=== PATIENT | female | born 1990 | race Caucasian/White ===

== ENCOUNTER 2018-07-17 08:39 | Emergency (ER) | payer BC ==
--- NOTE | 2018-07-17 08:41 | UC ---
Dental HPI - HPI Summary HPI Summary: know dental prob upper L molar, is scheduled for root canal i n 2 days. tooth pain has been progressive;y worse over pst few days. is usinh tyleno and ibuprofen for pain with fairly good relief. she feels like her tooth is "swollen ". no drainage - History of Current Complaint Stated Complaint: DENTAL PAIN Time Seen by Provider: 07/17/18 08:40 Hx Obtained From: Patient ?: No Onset/Duration: Gradual Onset Severity: Severe Aggravating Factor(s): Heat, Cold, Chewing Alleviating Factor(s): OTC Meds Related History: Previous Dental Care on Same Tooth - Allergies/Home Medications Allergies/Adverse Reactions: Allergies Allergy/AdvReac Type Severity Reaction Status Date / Time milk Allergy GI Upset Verified 07/17/18 08:50 Home Medications: Home Medications Etonogestrel [Nexplanon] 07/17/18 [History] Gabapentin CAP(*) [Neurontin 300 CAP(*)] 600 mg PO BEDTIME 07/17/18 [History Confirmed 07/17/18] Gabapentin CAP(*) [Neurontin 300 CAP(*)] 900 mg PO QAM 07/17/18 [History Confirmed 07/17/18] LORazepam TAB(*) [Ativan 0.5 MG TAB (*)] 0.5 mg PO TID PRN 07/17/18 [History Confirmed 07/17/18] Loratadine 10 mg PO ONCE PRN 07/17/18 [History Confirmed 07/17/18] buPROPion TAB* [Wellbutrin TAB*] 300 mg PO QAM 07/17/18 [History Confirmed 07/17] PMH/Surg Hx/FS Hx/Imm Hx Previously Healthy: Yes Psychological History: Anxiety, Depression - Surgical History Surgical History: None - Family History Known Family History: Positive: None Negative: Hypertension, Diabetes - Social History Occupation: Employed Full-time Lives: With Family Alcohol Use: Occasionally Substance Use Type: None Smoking Status (MU): Light Every Day Tobacco Smoker Review of Systems All Other Systems Reviewed And Are Negative: Yes Constitutional: Positive: Negative ENT: Positive: Dental Pain Respiratory: Positive: Negative Cardiovascular: Positive: Negative Neurological: Positive: Negative Psychological: Positive: Negative Is Patient Immunocompromised?: No Physical Exam - Summary Physical Exam Summary: Physical Exam: Const: Appears well. No signs of apparent distress present. Alert and oriented x 3. Musculo: Walks with a normal gait. Head/Face: Atraumatic, normocephalic on inspection. Eyes: EOMI and PERRLA in both eyes. Conjunctivae clear. No discharge noted ENT: Hearing normal, TM normal appearing bilaterally . Respiratory: Respirations are unlabored. Lungs clear to auscultation bilaterally, no wheezing , rhonchi or rales noted . CVS: Regular rate and Rhythm, S1S2 normal , no murmurs identified. Extremities: Peripheral circulation is grossly normal. Pulses 2+ Abdomen : Soft non tender , nondistended , Bowel sounds present . No guarding , rebound tenderness or rigidity noted. Skin: No lesions or rash located on the upper extremities or on the lower extremities. Neuro: Cranial nerves II to XII intact, motor and sensory intact. DTR Intact bilaterally. Mood is normal. Affect is normal. Appearance: Well-Appearing, Well-Nourished, Pain Distress - holding L side mouth Vital Signs Reviewed: Yes ENT: Positive: Dental tenderness Dental Exam: Normal Dental: Positive: Percussion Tenderness @ - upper L first molar. Negative: Abscess @ Neck exam: Normal Neck: Positive: No Lymphadenopathy Respiratory Exam: Normal Cardiovascular Exam: Normal Musculoskeletal Exam: Normal Neurological Exam: Normal Psychological Exam: Normal Skin Exam: Normal Dental Complaint Course/Dx - Differential Dx/Diagnosis Differential Diagnosis/Dx: Dental Abscess, Dental Caries, Fractured Tooth Provider Diagnoses: dental pain Discharge - Sign-Out/Discharge Documenting (check all that apply): Patient Departure All imaging exams completed and their final reports reviewed: No Studies - Discharge Plan Condition: Stable Disposition: HOME Prescriptions: Clindamycin HCl 150 mg PO QID #28 capsule Patient Education Materials: Toothache (ED) Referrals: Bonnie Terry MD [Primary Care Provider] - Additional Instructions: Please start taking the medication as prescribed to the pharmacy . continue ibuprofen and tylenol over the counter as directed Follow up with your dentist as planned in 2 days. Return to Urgent care / ER if symptoms get worse. - Billing Disposition and Condition Condition: STABLE Disposition: Home
[2018-07-17 09:01] VITALS: BP 128/83
== END 2018-07-17 09:24 | disposition home or self-care (01) ==
LOC: UCEAST 08:39
DX: K08.89 Other specified disorders of teeth and supporting structures (principal); F41.9 Anxiety disorder, unspecified; F32.9 Major depressive disorder, single episode, unspecified; F17.200 Nicotine dependence, unspecified, uncomplicated; Z91.011 Allergy to milk products; Z79.899 Other long term (current) drug therapy
CPT/HCPCS: 99212; G0463

== ENCOUNTER 2018-09-06 13:56 | Emergency (ER) | payer BC ==
--- NOTE | 2018-09-06 14:16 | UC ---
Complaint Female HPI - HPI Summary HPI Summary: 27 yo female presents with urinary burning, frequency, and bladder pressure for the last 2-3 days. She has had a UTI in the past and this feels the same. She denies fever, chills, abdominal pain, n/v, hematuria, or flank pain. - History Of Current Complaint Stated Complaint: POSS UTI Time Seen by Provider: 09/06/18 14:16 Hx Obtained From: Patient Hx Last Menstrual Period: 07/03/18 Onset/Duration: Gradual Onset Timing: Constant Severity Initially: Mild Severity Currently: Mild Pain Intensity: 3 Pain Scale Used: 0-10 Numeric - Allergies/Home Medications Allergies/Adverse Reactions: Allergies Allergy/AdvReac Type Severity Reaction Status Date / Time lactose Allergy GI Upset Verified 09/06/18 14:13 Home Medications: Home Medications Cranberry Conc/C/Bacill Coag [Azo Cranberry 250-30 mg] 1 tab PO ONCE 09/06/18 [ History Confirmed 09/06/18] PMH/Surg Hx/FS Hx/Imm Hx Psychological History: Anxiety, Depression - Surgical History Surgical History: None - Family History Known Family History: Positive: None Negative: Hypertension, Diabetes - Social History Lives: With Family Alcohol Use: Occasionally Substance Use Type: None Smoking Status (MU): Light Every Day Tobacco Smoker Type: Cigarettes Amount Used/How Often: 3-4 cigs per day Review of Systems All Other Systems Reviewed And Are Negative: Yes Constitutional: Positive: Negative Skin: Positive: Negative Respiratory: Positive: Negative Cardiovascular: Positive: Negative Gastrointestinal: Positive: Negative Genitourinary: Positive: Dysuria, Frequency, Urgency Neurovascular: Positive: Negative Neurological: Positive: Negative Psychological: Positive: Negative Physical Exam - Summary Physical Exam Summary: GENERAL: NAD. WDWN. No pain distress. SKIN: No rashes, sores, lesions, or open wounds. NECK: Supple. Nontender. No lymphadenopathy. CHEST: CTAB. No r/r/w. No accessory muscle use. Breathing comfortably and in no distress. CV: RRR. Without m/r/g. Pulses intact. Cap refill <2seconds ABDOMEN: Soft. NTTP. No distention or guarding. No CVA tenderness. Bowel sounds present NEURO: Alert. PSYCH: Age appropriate behavior. Triage Information Reviewed: Yes Vital Signs: Vital Signs: Temp Pulse Resp BP Pulse Ox 98.6 F 80 16 123/84 97 09/06/18 14:15 09/06/18 14:15 09/06/18 14:15 09/06/18 14:15 09/06/18 14:15 Vital Signs Reviewed: Yes Complaint Female Dx - Course Course Of Treatment: Unable to obtain UA as pt took AZO prior to arrival. Will rx for Bactrim and send her urine for culture. - Differential Dx/Diagnosis Provider Diagnosis: UTI (urinary tract infection) Discharge - Sign-Out/Discharge Documenting (check all that apply): Patient Departure All imaging exams completed and their final reports reviewed: No Studies - Discharge Plan Condition: Stable Disposition: HOME Prescriptions: Fluconazole 150 MG TAB* [Diflucan 150 MG TAB*] 150 mg PO ONCE #1 tablet Sulfamethox/Trimethoprim DS* [Bactrim DS 800/160 TAB*] 1 tab PO BID #10 tab Patient Education Materials: Urinary Tract Infection in Women (ED) Referrals: Bonnie Terry MD [Primary Care Provider] - Additional Instructions: If you develop a fever, shortness of breath, chest pain, new or worsening symptoms - please call your PCP or go to the ED. - Billing Disposition and Condition Condition: STABLE Disposition: Home
[2018-09-06 14:21] VITALS: BP 123/84
== END 2018-09-06 14:44 | disposition home or self-care (01) ==
LOC: UCEAST 13:56
DX: N39.0 Urinary tract infection, site not specified (principal); B96.20 Unspecified Escherichia coli [E. coli] as the cause of diseases classified elsewhere; F17.210 Nicotine dependence, cigarettes, uncomplicated
CPT/HCPCS: 87077; 87086; 87186; 99212; G0463

== ENCOUNTER 2019-09-12 08:29 | Day surgery (SDC) | payer OTHER ==
--- NOTE | 2019-09-06 17:03 | HP ---
PREOPERATIVE HISTORY AND PHYSICAL: DATE OF ADMISSION/SURGERY: 09/12/19 [facility] DATE OF OFFICE VISIT/ENCOUNTER: 09/06/19 ATTENDING SURGEON: Connie Renner MD * (DICTATED BY PHYLICIA ABRAHAM) PROCEDURE: Left wrist volar and dorsal cyst excision. HISTORY OF PRESENT ILLNESS: This is a 28-year-old female, who formerly worked at a veterinary lab and this is when the symptoms began. This is a Workers' Comp case. She complains of symptoms ongoing for a year. She has pain on both the dorsal and volar aspects of the left wrist and it is difficult for her to bear weight in extension. She does not complain of any numbness or tingling. 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 An MRI of the left wrist shows a ganglion cyst on both the dorsal and volar aspects of the left radiocarpal joint. She would like to have the cysts removed. PAST MEDICAL HISTORY: 1. History of exercise-induced asthma. 2. Anxiety/depression. 3. Environmental allergies. 4. Chronic joint pain. PAST SURGICAL HISTORY: Eye surgery. CURRENT MEDICATIONS: 1. Bupropion hydrochloride ER XL 150 mg daily. 2. Carbamide peroxide p.r.n. 3. Cetirizine HCl 10 mg daily. 4. Duloxetine HCl 60 mg 1 tab daily. 5. Duloxetine HCl 30 mg 1 tab daily. 6. Gabapentin 300 mg 3 tabs in the morning, 2 tabs midday and 3 tabs at bedtime. 7. Ibuprofen 200 mg p.r.n. 8. Lorazepam 0.5 mg 1 to 2 tabs twice daily p.r.n. anxiety. 9. Multivitamin 1 tab daily. 10. Nexplanon 68 mg. 11. [place] Ultra Strength p.r.n. ALLERGIES: No known drug allergies. FAMILY MEDICAL HISTORY: Noncontributory. SOCIAL HISTORY: The patient is currently unemployed. She is no longer working as a [employer]. She is a current smoker. She reports smoking 4 to 6 cigarettes a day for the past 10 years. She has been trying to cut down. She has been up to half a pack per day. She also admits to smoking cannabis on regular occasion. She drinks alcohol on rare occasion. REVIEW OF SYSTEMS: Negative for general, cephalic, cardiovascular, respiratory , GI, , other musculoskeletal, integumentary, endocrine, neurologic, and hematologic symptoms. Infectious Disease: Negative for MRSA, hepatitis C, HIV. PHYSICAL EXAMINATION GENERAL: A well-developed, well-nourished 28-year-old female, in no acute distress. VITAL SIGNS: Height 5 feet 3 inches, weight 130 pounds. Blood pressure 128/78 and pulse rate 88. HEENT: Normocephalic, atraumatic. Pupils are equal, round, and reactive to light and accommodation. Extraocular movements are intact. Throat is clear. NECK: Supple. No palpable lymph nodes. PULMONARY: Lungs are clear to auscultation bilaterally. No wheezes, rales, or rhonchi. CARDIOVASCULAR: Regular rate and rhythm. S1, S2. No murmurs, rubs, or gallops. No edema. ABDOMEN: Positive bowel sounds. Soft, nontender. NEUROLOGICAL: Alert and oriented x3. Cranial nerves II through XII are intact. Sensation is intact to light touch. MUSCULOSKELETAL: On exam of her left wrist, on the dorsal aspect she has some visible swelling or a mass and tenderness to palpation at the radiocarpal joint dorsally as well as volarly. She has good flexion and extension in her fingers. She has good flexion and extension in her wrist, but full extension causes pain especially if pressure is applied. Skin is intact. Neurovascular function is intact. IMAGING STUDIES: X-rays, AP, lateral, and oblique of the left wrist appear normal. MRI shows a ganglion cyst on both the volar and dorsal aspects of the wrist. IMPRESSION: Left wrist ganglion cysts x2. PLAN: The patient is scheduled to undergo left wrist volar and dorsal cyst excision with Dr. Renner on 09/12/19. She will return to the office 10 days postop for followup and suture removal. A prescription for Tylenol with Codeine was e- scribed to the patient's pharmacy for postoperative pain management. PHYLICIA ABRAHAM [id number]/[facility] #: [id number] MTDD
[~2019-09-12 08:29] MED LIST: Buffered Lidocaine 1% SYRIN* 1 ML/SYRINGE INTRADERM ONE; Lactated Ringers 1000 ML Bag* 1,000 ML IV SCH
[2019-09-12] MEDS ORDERED: Lidocaine 2% PF * 5 ML VIAL ONE (09:17)
[2019-09-12] MEDS ORDERED: Propofol* 10 MG/ML 20 ML BTL ONE ×3 (09:17→10:37)
[2019-09-12] MEDS ORDERED: Midazolam* 1 MG/ML 2 ML VIAL (2 MG) ONE ×3 (09:19→10:34)
[2019-09-12] MEDS ORDERED: Bupivacaine 0.5% SDV PF* 30ML VIAL ONE (09:52)
[2019-09-12] MEDS ORDERED: Lidocaine 1% INJ* 10 MG/ML 30 ML SDV ONE (09:52)
[2019-09-12] MEDS ORDERED: Naloxone* 0.4 MG/ML 1 ML VIAL IV PRN (10:14)
[2019-09-12] MEDS ORDERED: Ondansetron INJ* 2 MG/ML VIAL IV PRN (10:14)
[2019-09-12] MEDS ORDERED: oxyCODONE TAB* 5 MG TAB PO PRN (10:14)
[2019-09-12] MEDS ORDERED: fentaNYL* 50 MCG/ML 2 ML VIAL (100 MCG VIAL) IV PRN (10:14)
[2019-09-12] MEDS ORDERED: fentaNYL* 50 MCG/ML 2 ML VIAL (100 MCG VIAL) ONE (10:20)
[2019-09-12] MEDS ORDERED: KETAMINE HCL* 50 MG/ML 10 ML VIAL ONE (10:21)
[2019-09-12 11:03] VITALS: BP 110/76
--- NOTE | 2019-09-12 21:38 | OP ---
DATE OF OPERATION: 09/12/19 [facility] DATE OF : 88 SURGEON: Connie Renner MD RESIDENTIAL FEE APPRAISER: PHYLICIA Nieves ANESTHESIA: Local MAC. PRE-OP DIAGNOSIS: Left wrist volar and dorsal ganglion. POST-OP DIAGNOSIS: Left wrist volar and dorsal ganglion. OPERATIVE PROCEDURE: Removal of left wrist volar and dorsal ganglion. ESTIMATED BLOOD LOSS: Zero. INDICATIONS FOR PROCEDURE: Kavita is a 28-year-old female who has pain on the radial aspect of her left wrist. She has failed conservative treatment. MRI shows ganglion on the volar and radial aspect of the wrist. She presents for excision of both. DESCRIPTION OF PROCEDURE: The patient was brought to the operating room, was given a sedation anesthetic and local infiltration of 10 cc of 1% plain lidocaine, half on the dorsal and half on the volar aspect of the wrist. Skin of the left upper extremity was prepped and draped in usual sterile fashion. The upper extremity was exsanguinated and the tourniquet elevated to 250 mmHg. A transverse incision was made centered over the dorsal wrist mass and we dissected bluntly through the subcutaneous tissue. The extensor tendons were retracted by the surgical garment assembler, Chandrika Lopez. The ganglion cyst was emanating from the radiocarpal joint at the level of the scapholunate ligament. It was removed in its entirety and sent for pathology. The edges of the capsule on the dorsal aspect of the scapholunate ligament were cauterized with the Bovie. The wound was irrigated and the skin edges reapproximated with 4-0 nylon suture. Next, a chevron incision was made on the volar aspect of the wrist. We dissected bluntly through the subcutaneous tissue. The radial artery was retracted as was the flexor carpi radialis tendon. There was a small ganglion cyst emanating again from the radiocarpal joint. This was removed and sent for pathology. The would was copiously irrigated with saline. The edges of the capsule were cauterized with the Bovie and then the skin edges were reapproximated with 4-0 nylon suture. The wounds were dressed with Xeroform, 4x4, Webril and an Durga wrap. The patient tolerated the procedure well and was brought to the recovery room in good condition. [id number]/[facility] #: [id number] [facility] F[facility]ILITYZiyad
== END 2019-09-12 11:50 | disposition home or self-care (01) ==
LOC: OREAST 08:29
PROVIDERS: ATTEND Orthopaedic Surgery
DX: M67.432 Ganglion, left wrist (principal); J45.909 Unspecified asthma, uncomplicated; G89.29 Other chronic pain; F41.8 Other specified anxiety disorders; F17.210 Nicotine dependence, cigarettes, uncomplicated
CPT/HCPCS: 81025; 88304; J2250; J2704; J3010; J3490

== ENCOUNTER 2019-10-03 08:14 | Day surgery (SDC) | payer OTHER ==
--- NOTE | 2019-09-27 10:49 | HP ---
PREOPERATIVE HISTORY AND PHYSICAL: DATE OF ADMISSION/SURGERY: 10/03/19 DATE OF OFFICE VISIT/ENCOUNTER: 09/25/19 ATTENDING SURGEON: Connie Mckeon MD ([place]) * (DICTATED BY PHYLICIA ABRAHAM) PROCEDURE: Excision of mass, right wrist. HISTORY OF PRESENT ILLNESS: This is a 28-year-old female who complains of pain in her right wrist ongoing for over a year. 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 This is a workers' comp case. She denies any associated numbness or tingling, but she has palpable mass at the dorsal radiocarpal joint on the right. It is very tender to palpation and she gets increased pain when she tries to bear weight in extension. Clinically , she presents with a cyst in that area and she would like to have it removed. She recently had 2 cysts removed from her left wrist, and pathology showed those to be ganglion cysts. She would like to have the right wrist cyst removed. PAST MEDICAL HISTORY: 1. History of exercise-induced asthma. 2. Anxiety/depression. 3. Environmental allergies. 4. Chronic joint pain. PAST SURGICAL HISTORY: 1. Left wrist excision mass x2. 2. Eye surgery. CURRENT MEDICATIONS: 1. Bupropion hydrochloride ER XL 150 mg daily. 2. Carbamide peroxide p.r.n. 3. Cetirizine HCl 10 mg daily. 4. Duloxetine HCl 60 mg daily. 5. Duloxetine HCl 30 mg daily. 6. Gabapentin 300 mg 3 tabs in the morning, 2 tabs midday, 3 tabs bedtime. 7. Ibuprofen 200 mg p.r.n. 8. Lorazepam 0.5 mg 1 to 2 tabs twice daily p.r.n. anxiety. 9. Multivitamin daily. 10. Nexplanon 68 mg. 11. [place] Extra Strength p.r.n. ALLERGIES: No known drug allergies. FAMILY MEDICAL HISTORY: Noncontributory. SOCIAL HISTORY: The patient is currently unemployed. She is no longer working as a [employer]. She is a current smoker. She reports smoking 4 to 6 cigarettes a day for the past 10 years. She has been trying to cut down. She has been up to a half a pack per day. She also admits to smoking cannabis on regular occasions. She drinks alcohol on rare occasion. REVIEW OF SYSTEMS: Negative for general, cephalic, cardiovascular, respiratory , GI, , other musculoskeletal, integumentary, endocrine, neurologic, and hematologic symptoms. Infectious Disease: Negative for MRSA, hepatitis C, HIV. PHYSICAL EXAMINATION GENERAL: Well-developed, well-nourished 28-year-old female, in no acute distress. VITAL SIGNS: Height 5 feet 3 inches, weight 130 pounds, pulse rate 80, blood pressure 128/78. HEENT: Normocephalic, atraumatic. Pupils are equal, round, and reactive to light and accommodation. Extraocular movements are intact. Throat is clear. NECK: Supple. No palpable lymph nodes. PULMONARY: Lungs are clear to auscultation bilaterally. No wheezes, rales, or rhonchi. CARDIOVASCULAR: Regular rate and rhythm. S1, S2. No murmurs, rubs, or gallops. No edema. ABDOMEN: Positive bowel sounds. Soft and nontender. NEUROLOGIC: Alert and oriented x3. Cranial nerves II through XII are intact. Sensation is intact to light touch. MUSCULOSKELETAL: On exam of her right wrist, she has a palpable mass at the dorsal radiocarpal joint, which is very tender to palpation, increased pain with full extension of the wrist. IMAGING STUDIES: MRI of the right wrist shows no evidence of the ganglion, but clinically she presents with a ganglion cyst at the dorsal aspect of her right wrist. IMPRESSION: Right wrist cyst. PLAN: The patient is scheduled to undergo an excision mass right wrist with Dr. Mckeon on 10/03/19. She will return to the office 10 days postop for followup and suture removal. A prescription for Tylenol with Codeine was e- scribed to the patient's pharmacy for postoperative pain management. PHYLICIA ABRAHAM [id number]/[facility] #: [id number] MOO
[2019-10-03] MEDS ORDERED: HYDROcodone/ACETAMIN 5-325 MG* 1 TAB PO PRN (09:18)
[2019-10-03] MEDS ORDERED: DiMENhydriNATE IV* 50 MG/ML VIAL IV PUSH PRN (09:18)
[2019-10-03] MEDS ORDERED: Acetaminophen TAB* 325 MG PO PRN (09:18)
[2019-10-03] MEDS ORDERED: Ondansetron INJ* 2 MG/ML VIAL IV PRN (09:18)
[2019-10-03] MEDS ORDERED: Levalbuterol 0.63MG/3ML NEB* UNIT OF USE INH PRN (09:18)
[2019-10-03] MEDS ORDERED: fentaNYL* 50 MCG/ML 2 ML VIAL (100 MCG VIAL) IV PRN (09:18)
[2019-10-03] MEDS ORDERED: Naloxone* 0.4 MG/ML 1 ML VIAL IV PRN (09:18)
[2019-10-03] MEDS ORDERED: Lidocaine 1% INJ* 10 MG/ML 30 ML SDV ONE (10:25)
[2019-10-03 11:02] VITALS: BP 114/82
--- NOTE | 2019-10-03 14:31 | OP ---
DATE OF OPERATION: 10/03/19 [facility] DATE OF : 88 SURGEON: Connie Mckeon MD ANESTHESIA: Local MAC. PRE-OP DIAGNOSIS: Right dorsal wrist ganglion. POST-OP DIAGNOSIS: Right dorsal wrist ganglion. OPERATIVE PROCEDURE: Removal of right dorsal wrist ganglion. ESTIMATED BLOOD LOSS: Zero. TOURNIQUET TIME: About 15 minutes. INDICATIONS FOR PROCEDURE: Kavita is a 28-year-old female who has a painful mass in the dorsal aspect of her right wrist. Clinically, this is a ganglion cyst. She presents for excision. DESCRIPTION OF PROCEDURE: The patient was brought to the operating room, was given a sedation anesthetic and a local infiltration with 10 cc of 1% plain lidocaine on the dorsal aspect of her right wrist. The skin of her right upper extremity was prepped and draped in the usual sterile fashion. The hand and forearm were exsanguinated and the tourniquet elevated to 250 mmHg. A transverse incision was made centered over the mass. We dissected bluntly through the subcutaneous tissue. The extensor tendons were retracted. There was a small broad based mass emanating from the radiocarpal joint and this was excised. It was overlying the scapholunate ligament. The edges of the capsule and the dorsal aspect of the scapholunate ligament were cauterized with the Bovie. The wound was irrigated. The skin edges were reapproximated with 4-0 nylon suture. The wound was dressed with Xeroform, 4x4, Webril, and an Durga wrap. The patient tolerated the procedure well and was brought to the recovery room in good condition. [id number]/[facility] #: [id number] [facility]ENTER[facility]ad
== END 2019-10-03 11:12 | disposition home or self-care (01) ==
LOC: OREAST 08:14
PROVIDERS: ATTEND Orthopaedic Surgery
DX: M67.431 Ganglion, right wrist (principal); J45.909 Unspecified asthma, uncomplicated; F17.210 Nicotine dependence, cigarettes, uncomplicated; G89.29 Other chronic pain; Z79.891 Long term (current) use of opiate analgesic; F41.9 Anxiety disorder, unspecified
CPT/HCPCS: 81025; 88304